=== PATIENT | female | born 1935 | race Caucasian/White ===

== ENCOUNTER 2017-01-24 08:36 | Emergency (ER) | payer MEDICARE, OTHER ==
[~2017-01-24] VITALS: Ht 161.3 cm; Wt 112.0 kg
[~2017-01-24 08:36] MED LIST: ACET-703 PO; ALLO300T2 PO; ATOR10TA15; BIOT1CAP2 PO; ESTR42.5V; FISHCAP4 PO; HYDR12.56; LEVO200T4; LISI40TA; MELO7.5T4; MULTTAB67 PO; TRAM50TA PO; TRAZ50TA12; WARF-23; [UNRECOGNIZED DRUG - CODE]
[2017-01-24 08:42] VITALS: BP 111/63; PULSE 88; RESP 18; TEMP 98.6; O2SAT 96
--- NOTE | 2017-01-24 09:07 | PD ---
HPI Chief Complaint: Cold / Flu Symptoms Time Seen by Provider: 08:54 Travel History International Travel<30 days: No Contact w/Intl Traveler<30days: No Traveled to known affect area: No History of Present Illness HPI This 81-year-old female is complaining of generalized weakness. She believes that she has the flu. She says she's been coughing and at times had some wheezing. She says she's been feeling short of breath. 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 She admits to having a lot of anxiety. Her has dementia and has not been doing well. She believes that they both have the flu. They've been sick for about a week and a half She says she's been bringing up some phlegm. She doesn't know if she's had fever. She does have a history of chronic back pain and goes to pain management. PFSH Past Medical History Cancer: Yes (SKIN) Diabetes: No (PREDIABETES) Hypertension: Yes Respiratory: Yes (PE X3) Immunizations Current: Yes Thyroid Disease: Yes (HYPO) Past Surgical History Joint Replacement: Yes (BILATERAL KNEES) Tonsillectomy: Yes Social History Alcohol Use: No Tobacco Use: No Substance Use: No Allergies-Medications (Allergen,Severity, Reaction): Coded Allergies: No Known Allergies (Unverified , 01/24/17) Reported Meds & Prescriptions Reported Meds & Active Scripts Active Tramadol (Tramadol HCl) 50 Mg Tab 50 Mg PO Q8H PRN Reported Multiple Vitamin 1 Tab 1 Tab PO DAILY Biotin 1 Mg Cap 1 Mg PO Fish Oil + D3 (Fish Oil-Cholecalciferol) 1,200-1,000 Mg-Unit Cap 1 Cap PO DAILY Allopurinol 300 Mg Tab 300 Mg PO DAILY Levothyroxine (Levothyroxine Sodium) 200 Mcg Tab 90 Days Lisinopril 40 Mg Tab 90 Days Hydrochlorothiazide 12.5 Mg Tab 90 Days Atorvastatin (Atorvastatin Calcium) 10 Mg Tab 90 Days Moviprep 100 GM (Peg [id number] Sulfate-N) 1 Sheila Sheila 1 Days Estrace Vaginal (Estradiol) 0.01% Cream 30 Days Trazodone (Trazodone HCl) 50 Mg Tab 90 Days Meloxicam 7.5 Mg Tab 90 Days Warfarin 5 Mg Tab 90 Days Review of Systems General / Constitutional: Positive: Chills, No: Fever Eyes: No: Diploplia Cardiovascular: No: Chest Pain or Discomfort Respiratory: Positive: Cough, No: Shortness of Breath Gastrointestinal: No: Nausea, Vomiting Genitourinary: No: Frequency Neurologic: Positive: Weakness, No: Dizziness Hematologic/Lymphatic: No: Easy Bruising Physical Exam Narrative GENERAL: Well-developed female SKIN: Focused skin assessment warm/dry. HEAD: Atraumatic. Normocephalic. EYES: Pupils equal and round. No scleral icterus. No injection or drainage. ENT: No nasal bleeding or discharge. Mucous membranes pink and moist. NECK: Trachea midline. No JVD. CARDIOVASCULAR: Regular rate and rhythm. No murmur appreciated. RESPIRATORY: No accessory muscle use. Clear to auscultation. Breath sounds equal bilaterally. GASTROINTESTINAL: Abdomen soft, non-tender, nondistended. Hepatic and splenic margins not palpable. MUSCULOSKELETAL: No obvious deformities. No clubbing. No cyanosis. No edema. NEUROLOGICAL: Awake and alert. No obvious cranial nerve deficits. Motor grossly within normal limits. Normal speech. PSYCHIATRIC: Appropriate mood and affect; insight and judgment normal. Data Data Last Documented VS Vital Signs Date Time Temp Pulse Resp B/P (MAP) Pulse Ox O2 Delivery O2 Flow Rate FiO2 01/24/17 08:51 16 96 Room Air 01/24/17 08:42 98.6 88 111/63 (79) Orders Orders Electrocardiogram (01/24/17 08:54) Complete Blood Count With Diff (01/24/17 08:54) Comprehensive Metabolic Panel (01/24/17 08:54) Troponin I (01/24/17 08:54) Prothrombin Time / Inr (Pt) (01/24/17 08:54) Influenzae A/B Antigen (01/24/17 08:54) Chest, Single Ap (01/24/17 08:54) B-Type Natriuretic Peptide (01/24/17 09:49) Labs Laboratory Tests Test 01/24/17 09:20 01/24/17 10:35 White Blood Count 6.9 TH/MM3 Red Blood Count 3.68 MIL/MM3 Hemoglobin 12.9 GM/DL Hematocrit 37.5 % Mean Corpuscular Volume 101.9 FL Mean Corpuscular Hemoglobin 34.9 PG Mean Corpuscular Hemoglobin Concent 34.2 % Red Cell Distribution Width 14.4 % Platelet Count 152 TH/MM3 Mean Platelet Volume 9.3 FL Neutrophils (%) (Auto) 71.0 % Lymphocytes (%) (Auto) 18.5 % Monocytes (%) (Auto) 9.4 % Eosinophils (%) (Auto) 0.8 % Basophils (%) (Auto) 0.3 % Neutrophils # (Auto) 4.9 TH/MM3 Lymphocytes # (Auto) 1.3 TH/MM3 Monocytes # (Auto) 0.6 TH/MM3 Eosinophils # (Auto) 0.1 TH/MM3 Basophils # (Auto) 0.0 TH/MM3 CBC Comment DIFF FINAL Differential Comment Prothrombin Time 30.0 SEC Prothromb Time International Ratio 2.6 RATIO Blood Urea Nitrogen 30 MG/DL Creatinine 1.10 MG/DL Random Glucose 117 MG/DL Total Protein 7.4 GM/DL Albumin 3.7 GM/DL Calcium Level 8.7 MG/DL Alkaline Phosphatase 49 U/L Aspartate Amino Transf (AST/SGOT) 38 U/L Alanine Aminotransferase (ALT/SGPT) 25 U/L Total Bilirubin 0.5 MG/DL Sodium Level 134 MEQ/L Potassium Level 3.9 MEQ/L Chloride Level 98 MEQ/L Carbon Dioxide Level 26.5 MEQ/L Anion Gap 10 MEQ/L Estimat Glomerular Filtration Rate 48 ML/MIN Troponin I LESS THAN 0.02 NG/ML B-Type Natriuretic Peptide 91 PG/ML MDM Medical Decision Making Medical Screen Exam Complete: Yes Emergency Medical Condition: Yes Medical Record Reviewed: Yes Differential Diagnosis Differential includes anxiety, influenza, URI Narrative Course Test for influenza is negative. EKG normal sinus rhythm. Chest x-ray read as possible CHF though her BNP is normal. Her saturations are normal her heart rate is normal. She is having mild symptoms of upper respiratory infection. I don't think antibiotics are warranted Diagnosis Primary Impression: Upper respiratory infection Disposition: 01 DISCHARGE HOME Condition: Stable Tadeo aKng MD Jan 24, 2017 09:07
[2017-01-24 09:37] LABS: AUTOMATED NEUTROPHIL # 4.9 TH/MM3 (1.8-7.7); BASOPHIL % 0.3 % (0.0-2.0); EOSINOPHIL # 0.1 TH/MM3 (0-0.4); EOSINOPHIL % 0.8 % (0.0-4.0); HEMATOCRIT 37.5 % (35.0-46.0); HEMO FLAGS DIFF FINAL; LYMPH % 18.5 % (9.0-44.0); LYMPHOCYTE # 1.3 TH/MM3 (1.0-4.8); MEAN CELL VOLUME 101.9 FL (80.0-100.0); MEAN CORPUSCULAR HEMOGLOBIN 34.9 PG (27.0-34.0); MEAN CORPUSCULAR HGB CONC 34.2 % (32.0-36.0); MONO % 9.4 % (0.0-8.0); PLATELET COUNT 152 TH/MM3 (150-450); RED BLOOD COUNT 3.68 MIL/MM3 (4.00-5.30); RED CELL DISTRIBUTION WIDTH 14.4 % (11.6-17.2); WHITE BLOOD COUNT 6.9 TH/MM3 (4.0-11.0)
--- NOTE | 2017-01-24 09:37 | RADRPT ---
EXAM DATE/TIME: 01/24/2017 09:08 [facility] COMPARISON: No previous studies available for comparison. INDICATIONS : Short of breath and cough MEDICAL HISTORY : Hypertension. Pulmonary embolism SURGICAL HISTORY : None. ENCOUNTER: Initial ACUITY: 1 week PAIN SCORE: 4/10 LOCATION: Bilateral chest FINDINGS: Moderate interstitial edema is present. The heart is minimally enlarged. There is lateral consolida tion or pleural effusion. CONCLUSION: Moderate congestive failure. Howard Roldan MD FACR on January 24, 2017 at 9:36 Board Certified Radiologist. This report was verified electronically.
[2017-01-24 09:47] LABS: BICARBONATE 26.5 MEQ/L (21.0-32.0); BLOOD UREA NITROGEN 30 MG/DL (7-18)
[2017-01-24 09:48] LABS: INTERNATIONAL NORMALIZED RATIO 2.6 RATIO
[2017-01-24 09:50] LABS: ALT (GPT) 25 U/L (10-53); AST (GOT) 38 U/L (15-37); GLOMERULAR FILTRATION RATE 48 ML/MIN (>89)
[2017-01-24 09:52] LABS: TOTAL BILIRUBIN ADULT 0.5 MG/DL (0.2-1.0)
[2017-01-24 09:53] LABS: ALKALINE PHOSPHATASE 49 U/L (45-117)
[2017-01-24 09:54] LABS: ANION GAP 10 MEQ/L (5-15); CHLORIDE 98 MEQ/L (98-107); POTASSIUM 3.9 MEQ/L (3.5-5.1); SODIUM (NA) 134 MEQ/L (136-145)
[2017-01-24 12:15] VITALS: BP 134/76; PULSE 78; RESP 16; O2SAT 97
--- NOTE | 2017-01-25 13:34 | EKG ---
Date Performed: 01/24/2017 Time Performed: 09:02:30 PTAGE: 81 years EKG: Sinus rhythm WITH FREQUENT SUPRAVENTRICULAR PREMATURE COMPLEXES INCOMPLETE RIGHT BUNDLE BRANCH BLOCK MINIMAL ST D EPRESSION ABNORMAL RHYTHM ECG PREVIOUS TRACING : 05/09/2014 08.34 Since prior tracing, PACs are now seen. DOCTOR: Dane Mccall Interpretating Date/Time 01/25/2017 13:33:02
== END 2017-01-24 12:22 | disposition home or self-care (01) ==
LOC: PHED 08:36
DX: J06.9 Acute upper respiratory infection, unspecified (principal); R94.31 Abnormal electrocardiogram [ECG] [EKG]; Z79.01 Long term (current) use of anticoagulants; Z86.718 Personal history of other venous thrombosis and embolism
CPT/HCPCS: 71010; 80053; 83880; 84484; 85025; 85610; 87804; 93005; 99285